=== PATIENT | male | born 1990 | race American Indian/Alaskan Native ===

== ENCOUNTER 2016-09-25 04:38 | Emergency (ER) | payer SELFPAY ==
[2016-09-25 04:47] VITALS: BP 133/83
[2016-09-25 06:26] LABS: Bacteria,Urine 1+ /HPF (Negative); Bilirubin,Urine NEG (Negative); Blood,Urine NEG (Negative); Ketones,Urine NEG (Negative); Leukocyte Esterase,Urine LG (Negative); Mucus,Urine FEW /HPF; Nitrite,Urine NEG (Negative); Protein,Urine <15 mg/dL mg/dL (Negative); Urobilinogen,Urine < 2.0 mg/dL (<2.0)
[2016-09-25] MEDS ORDERED: XYLOCAINE 1% MPF 5 mL INFILTRATI ONE (07:27)
[2016-09-25] MEDS ORDERED: ROCEPHIN IM ONE (07:27)
[2016-09-25] MEDS ORDERED: ZITHROMAX PO ONE (07:27)
--- NOTE | 2016-09-25 07:31 | Emergency Department Report ---
ED Male HPI - General Chief complaint: Urogenital-Male Stated complaint: DISCHARGE Time Seen by Provider: 09/25/16 07:21 Source: patient Mode of arrival: Ambulatory Limitations: No Limitations - History of Present Illness Initial comments: PT c/o penile discharge and dysuria x 3 weeks. PT states he did not have time to seek medical treatment prior to today. PT states he was out of town in [place]. PT reports having unprotected sex. MD Complaint: dysuria -: week(s) (three ) Severity: mild Severity scale (0 -10): 3 Quality: burning Consistency: constant Improves with: none Worsens with: urination new sexual partner discharge, dysuria. denies: swelling, rash, fever, nausea/vomiting - Related Data Sexually active: Yes Allergies Allergy/AdvReac Type Severity Reaction Status Date / Time No Known Allergies Allergy Unverified 01/31/13 14:14 ED Review of Systems ROS: Stated complaint: DISCHARGE Other details as noted in HPI Comment: All other systems reviewed and negative Constitutional: denies: chills, fever Gastrointestinal: denies: abdominal pain, nausea, vomiting Genitourinary: as per HPI, discharge. denies: testicular pain, testicular mass Musculoskeletal: denies: back pain Skin: denies: rash ED Past Medical Hx - Past Medical History Previous Medical History?: No - Surgical History Past Surgical History?: No - Social History Smoking Status: Current Every Day Smoker Substance Use Type: Alcohol ED Physical Exam - General Limitations: No Limitations General appearance: alert, in no apparent distress - Head Head exam: Present: atraumatic, normocephalic, normal inspection - Eye Eye exam: Present: normal appearance, PERRL, EOMI. Absent: conjunctival injection - ENT ENT exam: Present: normal exam, mucous membranes moist, normal external ear exam - Neck Neck exam: Present: normal inspection, full ROM - Respiratory Respiratory exam: Present: normal lung sounds bilaterally. Absent: respiratory distress, wheezes, chest wall tenderness - Cardiovascular Cardiovascular Exam: Present: regular rate, normal rhythm, normal heart sounds - GI/Abdominal GI/Abdominal exam: Present: soft. Absent: distended, tenderness, guarding, rebound, rigid - Extremities Exam Extremities exam: Present: normal inspection, full ROM - Back Exam Back exam: Present: normal inspection, full ROM. Absent: tenderness, CVA tenderness (R), CVA tenderness (L), muscle spasm, paraspinal tenderness, vertebral tenderness - Neurological Exam Neurological exam: Present: alert, oriented X3, normal gait - Psychiatric Psychiatric exam: Present: normal affect, normal mood - Skin Skin exam: Present: warm, dry, intact, normal color ED Course Vital Signs 09/25/16 04:44 Temperature 98.6 F Pulse Rate 106 H Respiratory 20 Rate Blood Pressure 133/83 O2 Sat by Pulse 98 Oximetry - Reevaluation(s) Reevaluation #1: 09/25/16 07:33 PT aware of UA results. PT aware with his symptoms, likely related to STD. Will treat empirically for gc/ct. PT aware of plan of care. PT aware he will need to follow up with PCP or health dept for further STD testing. PT instructed on barrier method. - Pulse Oximetry Interpretation Digit-Finger Initial Pulse Oximetry Readin Actions Taken: none ED Medical Decision Making - Lab Data Lab Results 09/25/16 Range/Units 05:07 Urine Color Yellow (Yellow) Urine Turbidity Clear (Clear) Urine pH 6.0 (5.0-7.0) Ur Specific Raymond 1.011 (1.003-1.030) Urine Protein <15 mg/dl (Negative) mg/dL Urine Glucose (UA) Neg (Negative) mg/dL Urine Ketones Neg (Negative) mg/dL Urine Blood Neg (Negative) Urine Nitrite Neg (Negative) Urine Bilirubin Neg (Negative) Urine Urobilinogen < 2.0 (<2.0) mg/dL Ur Leukocyte Esterase Lg (Negative) Urine WBC (Auto) 115.0 H (0.0-6.0) /HPF Urine RBC (Auto) 19.0 (0.0-6.0) /HPF U Epithel Cells (Auto) < 1.0 (0-13.0) /HPF Urine Bacteria (Auto) 1+ (Negative) /HPF Urine Mucus Few /HPF - Differential Diagnosis std, uti Critical Care Time: No Critical care attestation.: If time is entered above; I have spent that time in minutes in the direct care of this critically ill patient, excluding procedure time. ED Disposition Clinical Impression: Penile discharge, Risky sexual behavior Disposition: DC-01 TO HOME OR SELFCARE Is pt being admited?: No Does the pt Need Aspirin: No Condition: Stable Instructions: Sexually Transmitted Diseases (ED), Safe Sex (ED) Additional Instructions: No sex x 7 days Follow up with PCP or health dept for full panel STD testing If your cultures come back positive, your partners will need testing/ treatment Referrals: PRIMARY CAREMD [Primary Care Provider] - 3-5 Days SILVIA CARVER MD [Staff Physician] - 3-5 Days [facility] Depart [Outside] - 3-5 Days Forms: Work/School Release Form(ED), STI Treatment and Prevention Time of Disposition: 07:39
== END 2016-09-25 08:02 | disposition home or self-care (01) ==
LOC: ED 04:38
DX: R36.9 Urethral discharge, unspecified (principal); R30.0 Dysuria; F17.210 Nicotine dependence, cigarettes, uncomplicated
CPT/HCPCS: 81001; 87591; 96372; 99283; J0696